=== PATIENT | male | born 1955 ===

== ENCOUNTER 2020-05-26 05:17 | Day surgery (SDC) | payer OTHER, MEDICAID ==
[2020-05-26] MEDS ORDERED: LACTATED RINGERS 1,000 ML ONE (06:35)
[2020-05-26] MEDS ORDERED: LIDOCAINE 1% 10 ML VIAL INJ ONE (07:00)
[2020-05-26] MEDS ORDERED: PROPOFOL 200 MG/20 ML VIAL IV ONE (07:00)
[2020-05-26] MEDS ORDERED: LACTATED RINGERS 1,000 ML IVS ONE (10:10)
--- NOTE | 2020-05-26 13:07 | OP ---
DATE OF PROCEDURE: 05/26/20 PREOPERATIVE DIAGNOSIS: 1. First screening colonoscopy. POSTOPERATIVE DIAGNOSIS: 1. Multiple colonic polyps, over 80. PROCEDURE: 1. Colonoscopy with polypectomy, snare x5 and forceps x1. SURGEON: Bjorn Hsu MD ANESTHESIA: General. FINDINGS: Upon entrance, he was noted to have multiple adenomatous hyperplastic appearing polyps in the rectum and sigmoid colon. We passed this and made it all the way through. Upon withdrawal, in the distal sigmoid and rectum were the polyps. We counted at least 80, excising the largest with snare. PROCEDURE: General anesthesia was induced in the lateral position. Digital rectal exam was normal. The colonoscope was passed without difficulty. The pediatric scope was passed without difficulty all the way to the ileocecal valve and appendiceal orifice. Upon withdrawal, there was one small polyp seen in the ascending colon and this was removed with forceps. Anticipating more polyps, we withdrew. The polyps began at just over 25 cm with a few small hyperplastic appearing. Upon withdrawal, we identified the largest polyps, most of them sessile, pedunculated, not completely flat. The 5 largest ones were removed. There were multiple smaller polyps, most of them with adenomatous appearance. We anticipate evaluating him further as an outpatient as well as repeat endoscopy pending the current pathology and, of course, possible recommendation for surgery although the polyps do go down into the distal rectum as well, although fewer. He tolerated the procedure. He was awakened and taken to Recovery to be discharged. #[id number] MTDD
[2020-05-26 13:22] VITALS: BP 132/84; TEMP 96.2; O2SAT 97
== END 2020-05-26 13:25 | disposition home or self-care (01) ==
LOC: AMB 05:17
PROVIDERS: ATTEND Surgery
DX: Z12.11 Encounter for screening for malignant neoplasm of colon (principal); D12.2 Benign neoplasm of ascending colon; K63.5 Polyp of colon; K62.1 Rectal polyp; F17.200 Nicotine dependence, unspecified, uncomplicated; J44.9 Chronic obstructive pulmonary disease, unspecified; E66.9 Obesity, unspecified; Z68.29 Body mass index [BMI] 29.0-29.9, adult; Z88.5 Allergy status to narcotic agent
CPT/HCPCS: 00812; 45380; 45385; 88305; J3490; J7120

== ENCOUNTER → 2020-10-04 | Outpatient (CLI) | payer OTHER, MEDICAID | LOC: YCFC.O 11:59 | PROVIDERS: ATTEND Family Medicine | DX: Z03.89 Encounter for observation for other suspected diseases and conditions ruled out (principal) ==